=== PATIENT | male | born 1960 | race Caucasian/White ===

== ENCOUNTER 2021-10-16 11:39 | Emergency (ER) | payer BC, OTHER ==
[~2021-10-16] VITALS: Ht 180.3 cm; Wt 90.7 kg
[2021-10-16] MEDS ORDERED: LOSARTAN (11:54)
--- NOTE | 2021-10-16 12:00 | NUR ---
Code Stroke activated by .
--- NOTE | 2021-10-16 12:01 | NUR ---
Telemed request placed, connect ID#[id number].
--- NOTE | 2021-10-16 12:05 | NUR ---
Pt to CT via [facility] with ACLS guidelines in place. Martin SIMONS and hazardous material technician with pt.
[2021-10-16 12:13] LABS: HEMATOCRIT 42.5 % (36.7-47.1); PLATELET COUNT (AUTO) 199 K/uL (152-348)
[2021-10-16 12:21] LABS: CARBON DIOXIDE 28 mmol/L (21-32); CHLORIDE 104 mmol/L (98-107); CREATININE 1.1 mg/dL (0.6-1.3); GLUCOSE 101 mg/dL (74-106); POTASSIUM 3.9 mmol/L (3.5-5.1); UREA NITROGEN, BLOOD 21 mg/dL (7-18)
[2021-10-16 12:26] LABS: ALANINE AMINOTRANSFERASE 35 U/L (16-63); ALKALINE PHOSPHATASE 59 U/L (50-136); ASPARTATE AMINOTRANSFERASE 24 U/L (15-37); BILIRUBIN,DIRECT < 0.1 mg/dL (0.0-0.2); BILIRUBIN,TOTAL 0.5 mg/dL (0.2-1.0); TOTAL PROTEIN, SERUM 6.9 g/dL (6.4-8.2)
[2021-10-16] MEDS ORDERED: ASPIRIN 325 MG TABLET PO ONE (12:30)
[2021-10-16] MEDS ORDERED: IOHEXOL 350 100 ML INFUS..BTL ONE (12:31)
[2021-10-16] MEDS ORDERED: SWABABLE VALVE TRANSFER SET EA MC ONE (12:31)
--- NOTE | 2021-10-16 12:40 | NUR ---
Cardiac monitoring also showed NSR
--- NOTE | 2021-10-16 12:40 | NUR ---
Arrived back to floor with pt from CT, cardiac monitoring 70-80 bpm during whole trip to CT.
--- NOTE | 2021-10-16 12:45 | NUR ---
Tele Neuro consult in progress at bedside.
--- NOTE | 2021-10-16 12:47 | NUR ---
[facility] paged for admission as requested by .
[2021-10-16] MEDS ORDERED: ASPIRIN 325 MG TABLET ONE (12:54)
[2021-10-16] MEDS ORDERED: IV NS 1000 ML 1,000 ML IV PRN (13:15)
[2021-10-16] MEDS ORDERED: ENOXAPARIN SODIUM 40 MG/0.4 ML DISP.SYRIN SQ SCH (13:15)
[2021-10-16] MEDS ORDERED: ENOXAPARIN SODIUM 40 MG/0.4 ML DISP.SYRIN SQ ONE (13:24)
--- NOTE | 2021-10-16 14:30 | NUR ---
Report given to jez
--- NOTE | 2021-10-16 15:10 | NUR ---
Patient Tranfers to outside Facility [facility] Physician: Dr. Boykin Location: Room 7111 Transfered by [place] [id number]
[2021-10-16] MEDS ORDERED: BLOOD SUGAR DIAGNOSTIC 1 EACH STRIP VI SCH ×2 (16:30→18:00)
[2021-10-16] MEDS ORDERED: SIMVASTATIN 20 MG TABLET PO SCH (21:00)
[2021-10-17] MEDS ORDERED: ASPIRIN EC 81 MG TABLET.DR PO SCH (09:00)
== END 2021-10-16 15:30 | disposition short-term general hospital (02) ==
LOC: ER 11:39
DX: I63.312 Cerebral infarction due to thrombosis of left middle cerebral artery (principal); R47.01 Aphasia; R20.0 Anesthesia of skin; R29.701 NIHSS score 1; I16.1 Hypertensive emergency; Z20.822 Contact with and (suspected) exposure to COVID-19; Z88.0 Allergy status to penicillin; E78.5 Hyperlipidemia, unspecified; I44.4 Left anterior fascicular block; R94.31 Abnormal electrocardiogram [ECG] [EKG]
CPT/HCPCS: 36415; 70450; 70496; 70498; 71045; 80048; 80076; 84484; 85025; 85730; 87426; 93005 ×2; 99291; Q9967; 70030-TC; A4663; J1650